=== PATIENT | male | born 1970 | race American Indian/Alaskan Native ===

== ENCOUNTER 2018-06-30 12:20 | Emergency (ER) | payer MEDICAID ==
--- NOTE | 2018-06-30 15:21 | C.PDOC ---
History Of Present Illness 47 yo male w/PMHx of HTN come in for evaluation of Left foot intermittent pain, swelling for past month after " dropped heavy object on my foot". Pt reports, pain is localized over dorsal aspect Left foot, worse after prolong ambulation, trace edema. Otherwise, pt denies open wound to left foot, weakness, sensory or vascular deficits to Left foot/ankle. Pt sts, xray of left foot performed before , no acute fx noted. Pt admits, was seen by now who sent him to ED for US of Left leg r/o DVT and arterial deficiency. Ambulate to Ed for evaluation, not in any apparent distress. Time Seen by Provider: 06/30/18 12:44 Chief Complaint (Nursing): Lower Extremity Problem/Injury History Per: Patient Past Medical History Reviewed: Historical Data, Nursing Documentation, Vital Signs Vital Signs: Last Vital Signs Temp 98.9 F 06/30/18 15:47 Pulse 72 06/30/18 15:47 Resp 16 06/30/18 15:47 BP 111/71 06/30/18 15:47 Pulse Ox 99 06/30/18 15:47 - Medical History PMH: HTN Other PMH: Obese Family History: States: No Known Family Hx - Social History Hx Tobacco Use: No Hx Alcohol Use: No Hx Substance Use: No - Immunization History Hx Tetanus Toxoid Vaccination: No Hx Influenza Vaccination: No Hx Pneumococcal Vaccination: No Review Of Systems Except As Marked, All Systems Reviewed And Found Negative. Constitutional: Negative for: Fever, Chills Cardiovascular: Negative for: Chest Pain, Edema Respiratory: Negative for: Cough, Shortness of Breath Musculoskeletal: Positive for: Foot Pain (Left) Skin: Negative for: Rash, Bruising Neurological: Negative for: Weakness, Numbness Physical Exam - Physical Exam Appears: Well, Non-toxic, No Acute Distress Skin: Normal Color, Warm, No Rash, No Ecchymosis Oral Mucosa: Moist Throat: No Erythema, No Drooling Neck: Trachea Midline, Supple Cardiovascular: Rhythm Regular, No Murmur, No JVD Respiratory: No Decreased Breath Sounds, No Accessory Muscle Use, No Stridor, No Wheezing Extremity: Normal ROM (LLE), Tenderness (mild over dorsal aspect left foot), No Calf Tenderness (left), No Deformity, Swelling (trace edea over dorsal aspect left foot, anterior aspect left ankle) Neurological/Psych: Oriented x3, Normal Speech, Normal Motor, Normal Sensation, Normal Reflexes ED Course And Treatment O2 Sat by Pulse Oximetry: 98 Pulse Ox Interpretation: Normal - CT Scan/US Dopple US of LLE Other Rad Studies (CT/US): Read By Radiologist CT/US Interpretation: prelim by tech (-) for DVT of LLE Arterial Duplex LLE Other Rad Studies (CT/US): Read By Radiologist CT/US Interpretation: prelim by tech: normal flow velocities noted in all arteries of LLE. Progress Note: On re-eval, pt is afebrile, hemodynamicaly stable. Non-toxic. Ambulatory in ED with stable gait. PuslEOx. Lungs: CTA B/L, BS equal B/L. CVS : (+)S1S2, reg, (-) murmur. LLE: exam c/w mild trace edema over dorsal asepct left foot with mild tenderness. NO erythema, no palpable deformity. FAROM, no neurovascular deficits. Duppler US venous and arterial of LLE performed with normal results by prelim reading, no evidence of DVT. Results discussed with pt. Advised to F/U with PMD, Ortho/Podiatry in 2-3 days for re-eval. return to ED if any worsening or new changes. Disposition Counseled Patient/Family Regarding: Studies Performed, Diagnosis, Need For Followup - Disposition Referrals: [facility] [Outside] Papa Marcial MD [Staff Provider] - Disposition: HOME/ ROUTINE Disposition Time: 15:18 Condition: STABLE Additional Instructions: Follow up with in 2-3 days for re-evaluation. Follow up with Podiatry clinic on from NOON-3PM for re-evaluation. return if any new changes. Instructions: Ankle Sprain (DC), Joint Pain Forms: [employer] ([employer]) - Clinical Impression Clinical Impression: Ankle arthralgia
[2018-06-30 15:48] VITALS: BP 111/71; PULSE 72; RESP 16; TEMP 98.9
[2018-06-30 16:49] VITALS: O2SAT 98
--- NOTE | 2018-07-03 13:04 | VASCLAB ---
Date of service: 06/30/2018 PROCEDURE: Left Lower Extremity Venous Duplex Exam. HISTORY: Left ankle/calf pain, swelling PRIORS: None. TECHNIQUE: Left common femoral, femoral, popliteal and posterior tibial, peroneal and great saphenous veins were evaluated. Flow was assessed with color Doppler, compressibility, assessment of phasic flow and augmentation response. Report prepared by ED Pickard, RVT FINDINGS: LEFT: 1. Common Femoral Vein: 1.1. Compressibility - Fully compressible: Thrombus - None : Flow - Phasic: Augmentation -Normal: Reflux - None. 2. Femoral Vein: 2.1. Compressibility - Fully compressible: Thrombus - None: Flow - Phasic: Augmentation -Normal: Reflux - None. 3. Popliteal Vein: 3.1. Compressibility - Fully compressible: Thrombus - None: Flow - Phasic: Augmentation -Normal: Reflux - None. 4. Posterior Tibial Vein: 4.1. Compressibility - Fully compressible: Thrombus - None: Flow - Phasic: Augmentation -Normal: Reflux - None. 5. Peroneal Vein: 5.1. Compressibility - Fully compressible: Thrombus - None: Flow - Phasic: Augmentation -Normal: Reflux - None. 6. Great Saphenous Vein: 6.1. Compressibility - Fully compressible: Thrombus - None: Flow - Phasic: Augmentation - Normal: Reflux - None. OTHER FINDINGS: Normal triphasic duplex waveforms noted in the left posterior tibial, anterior tibial and dorsalis pedis arteries. IMPRESSION: No evidence of deep or superficial vein thrombosis of the left lower extremity with excellent venous flow. Normal valve function noted of the left side. Normal venous flow noted in the right common femoral vein.
== END 2018-06-30 15:46 | disposition home or self-care (01) ==
LOC: C.ER 12:20
DX: M25.572 Pain in left ankle and joints of left foot (principal); I10 Essential (primary) hypertension